=== PATIENT | male | born 1945 | race Caucasian/White ===

== ENCOUNTER 2017-11-02 08:05 | Emergency (ER) | payer MEDICARE ==
[~2017-11-02] VITALS: Ht 177.8 cm; Wt 136.1 kg
[~2017-11-02 08:05] MED LIST: ACULAR1 DROP OD; ADVIL200 M1 PO; ALLOPURINOL100 MG PO; ASPIR-LOW81 MG PO; ATENOLOL25 MG PO; CIPRO500 MG PO; KETOTIFEN FUMARA5 ML OD; LISINOPRIL5 MG PO; METFORMIN HCL1000 MG PO
[2017-11-02] MEDS ORDERED: VENTOLIN HFA18 GM (08:19)
[2017-11-02] MEDS ORDERED: BENAZEPRIL HCL5 MG PO (08:19)
[2017-11-02] MEDS ORDERED: TESSALON PERLE100 MG PO (08:20)
[2017-11-02] MEDS ORDERED: ZITHROMAX250 MG PO (08:20)
== END 2017-11-02 08:39 | disposition home or self-care (01) ==
LOC: ED 08:05
DX: J40 Bronchitis, not specified as acute or chronic (principal); I10 Essential (primary) hypertension; E11.9 Type 2 diabetes mellitus without complications; Z88.2 Allergy status to sulfonamides; Z79.899 Other long term (current) drug therapy; Z79.84 Long term (current) use of oral hypoglycemic drugs
CPT/HCPCS: 99283

== ENCOUNTER 2017-11-03 05:54 | Emergency (ER) | payer MEDICARE ==
[~2017-11-03] VITALS: Ht 177.8 cm; Wt 136.1 kg
[~2017-11-03 05:54] MED LIST changes: +BENAZEPRIL HCL5 MG PO; +TESSALON PERLE100 MG PO; +VENTOLIN HFA18 GM; +ZITHROMAX250 MG PO
== END 2017-11-03 08:08 | disposition home or self-care (01) ==
LOC: ED 05:54
DX: J40 Bronchitis, not specified as acute or chronic (principal); E11.9 Type 2 diabetes mellitus without complications; I10 Essential (primary) hypertension; Z88.2 Allergy status to sulfonamides; Z98.890 Other specified postprocedural states; Z79.899 Other long term (current) drug therapy; Z79.84 Long term (current) use of oral hypoglycemic drugs
CPT/HCPCS: 71020; 81001; 99283

== ENCOUNTER 2019-01-03 11:20 | Emergency (ER) | payer MEDICARE ==
[~2019-01-03] VITALS: Ht 177.8 cm; Wt 136.1 kg
[2019-01-03] MEDS ORDERED: CIPRO500 MG PO (12:24)
[2019-01-03] MEDS ORDERED: FLOMAX0.4 MG PO (12:24)
== END 2019-01-03 12:47 | disposition home or self-care (01) ==
LOC: ED 11:20
DX: N39.0 Urinary tract infection, site not specified (principal); I10 Essential (primary) hypertension; E11.9 Type 2 diabetes mellitus without complications; Z88.2 Allergy status to sulfonamides; Z79.84 Long term (current) use of oral hypoglycemic drugs; Z79.899 Other long term (current) drug therapy
CPT/HCPCS: 81001; 99283

== ENCOUNTER 2019-04-17 17:56 | Emergency (ER) | payer MEDICARE ==
[~2019-04-17] VITALS: Ht 177.8 cm; Wt 131.5 kg
[~2019-04-17 17:56] MED LIST changes: +FLOMAX0.4 MG PO
[2019-04-17] MEDS ORDERED: NORCO 5-325 TA1 EACH PO (18:16)
== END 2019-04-17 18:59 | disposition home or self-care (01) ==
LOC: ED 17:56
DX: M23.92 Unspecified internal derangement of left knee (principal); I10 Essential (primary) hypertension; E11.9 Type 2 diabetes mellitus without complications; Z88.2 Allergy status to sulfonamides; Z79.899 Other long term (current) drug therapy; Z79.84 Long term (current) use of oral hypoglycemic drugs
CPT/HCPCS: 73560; 99283

== ENCOUNTER 2021-01-01 13:58 | Emergency (ER) | payer MEDICARE ==
[~2021-01-01] VITALS: Ht 177.8 cm; Wt 122.5 kg
[~2021-01-01 13:58] MED LIST changes: +ADVIL200 MG PO; +NORCO 5-325 TA1 EACH PO; +ULTRAM50 MG PO
[2021-01-01] MEDS ORDERED: DOXYCYCLINE HY100 MG PO (15:51)
[2021-01-01] MEDS ORDERED: VENTOLIN HFA18 GM INH ×2 (15:51→15:52)
[2021-01-01] MEDS ORDERED: FLONASE ALLERG9.9 ML NAS (15:54)
== END 2021-01-01 16:15 | disposition home or self-care (01) ==
LOC: ED 13:58
DX: J32.9 Chronic sinusitis, unspecified (principal); J06.9 Acute upper respiratory infection, unspecified; I10 Essential (primary) hypertension; E11.9 Type 2 diabetes mellitus without complications; Z20.822 Contact with and (suspected) exposure to COVID-19; Z88.2 Allergy status to sulfonamides; Z79.84 Long term (current) use of oral hypoglycemic drugs; Z79.899 Other long term (current) drug therapy
CPT/HCPCS: 71045; 99284-25; C9803; U0003

== ENCOUNTER 2021-12-29 07:53 | Emergency (ER) | payer MEDICARE ==
[~2021-12-29] VITALS: Ht 177.8 cm; Wt 122.5 kg
[~2021-12-29 07:53] MED LIST changes: +DOXYCYCLINE HY100 MG PO; +FLONASE ALLERG9.9 ML NAS; +VENTOLIN HFA18 GM INH
--- NOTE | 2021-12-31 17:50 | EKG ---
[facility] [address] [facility] [place] [address] Signed Normal sinus rhythm Left anterior fascicular block Minimal voltage criteria for LVH, may be normal variant ( R in aVL ) Septal infarct , age undetermined Abnormal ECG No previous ECGs available Confirmed by GRANT HARRELL MD ([id number]) on 12/31/2021 5:50:10 PM Electronically Signed By: GRANT HARRELL MD 12/31/21 1750 PATIENT NAME: SHOBHAFRANCOIS SY Electrocardiogram DATE OF : 41 PHYSICIAN: GRANT HARRELL MD REPORT #: [id number] REPORT IS CONFIDENTIAL AND NOT TO BE RELEASED WITHOUT AUTHORIZATION
== END 2021-12-29 09:55 | disposition home or self-care (01) ==
LOC: ED 07:53
DX: J20.5 Acute bronchitis due to respiratory syncytial virus (principal); I10 Essential (primary) hypertension; E11.9 Type 2 diabetes mellitus without complications; M10.9 Gout, unspecified; Z88.2 Allergy status to sulfonamides; Z79.84 Long term (current) use of oral hypoglycemic drugs; Z79.899 Other long term (current) drug therapy; Z20.822 Contact with and (suspected) exposure to COVID-19
CPT/HCPCS: 71045; 80048; 84484; 85025; 93005; 93010; 99284-25; C9803; U0003

== ENCOUNTER 2022-03-22 15:24 | Emergency (ER) | payer MEDICARE ==
[~2022-03-22] VITALS: Ht 177.8 cm; Wt 122.5 kg
== END 2022-03-22 18:16 | disposition home or self-care (01) ==
LOC: ED 15:24
DX: K80.20 Calculus of gallbladder without cholecystitis without obstruction (principal); N32.89 Other specified disorders of bladder; K59.00 Constipation, unspecified; I10 Essential (primary) hypertension; E11.9 Type 2 diabetes mellitus without complications; M10.9 Gout, unspecified; Z88.2 Allergy status to sulfonamides; Z79.899 Other long term (current) drug therapy; Z79.84 Long term (current) use of oral hypoglycemic drugs
CPT/HCPCS: 36415; 74177; 80053; 85025; 99284-25; Q9967

== ENCOUNTER 2022-07-19 13:47 | Emergency (ER) | payer OTHER, MEDICARE ==
[~2022-07-19] VITALS: Ht 177.8 cm; Wt 118.8 kg
[2022-07-19] MEDS ORDERED: FAMCICLOVIR500 MG PO (14:14)
== END 2022-07-19 16:10 | disposition home or self-care (01) ==
LOC: ED 13:47
DX: S20.211A Contusion of right front wall of thorax, initial encounter (principal); S40.011A Contusion of right shoulder, initial encounter; I10 Essential (primary) hypertension; E11.9 Type 2 diabetes mellitus without complications; W22.8XXA Striking against or struck by other objects, initial encounter; Z79.899 Other long term (current) drug therapy
CPT/HCPCS: 71101; 73030; 99283-25

== ENCOUNTER 2022-08-30 12:48 | Emergency (ER) | payer MEDICARE, OTHER ==
[~2022-08-30] VITALS: Ht 177.8 cm; Wt 118.8 kg
[~2022-08-30 12:48] MED LIST changes: +FAMCICLOVIR500 MG PO
[2022-08-30] MEDS ORDERED: ASPIRIN81 MG PO (13:14)
[2022-08-30] MEDS ORDERED: CIPRO500 MG PO ×2 (13:15→14:29)
== END 2022-08-30 15:08 | disposition home or self-care (01) ==
LOC: ED 12:48
DX: N39.0 Urinary tract infection, site not specified (principal); I10 Essential (primary) hypertension; E11.9 Type 2 diabetes mellitus without complications; M10.9 Gout, unspecified; Z88.2 Allergy status to sulfonamides; Z79.899 Other long term (current) drug therapy; Z79.84 Long term (current) use of oral hypoglycemic drugs; Z79.82 Long term (current) use of aspirin
CPT/HCPCS: 81001; 87088; 99283

== ENCOUNTER 2022-09-02 16:45 | Emergency (ER) | payer MEDICARE, OTHER ==
[~2022-09-02] VITALS: Ht 177.8 cm; Wt 118.8 kg
[~2022-09-02 16:45] MED LIST changes: +ASPIRIN81 MG PO
--- OUTSIDE RECORDS SUMMARY | 2022-09-02 16:50 | XMS ---
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 EMatias VISIT COUNT (12 MO.) [address] [place] [address] TOTAL 5 NOTE: Visits indicate total known visits. ED/UCC VISIT TRACKING (12 MO.) 09/02/2022 16:45 [facility] [place] TYPE: Emergency COMPLAINT: - URINE PROBLEM 08/30/2022 12:49 [facility] TYPE: Emergency COMPLAINT: - URINATING BLOOD 07/19/2022 13:47 [facility] [place] TYPE: Emergency COMPLAINT: - FALL,BACK MARILEE DIAGNOSES: - Essential (primary) hypertension - Striking against or struck by other objects, initial encounter - Other skilled nursing (current) drug therapy - Pain in right shoulder - Type 2 diabetes mellitus without complications - Contusion of right front wall of thorax, initial encounter - Contusion of right shoulder, initial encounter 03/22/2022 15:24 [facility] TYPE: Emergency COMPLAINT: - ABDOMINAL PAIN DIAGNOSES: - Other specified disorders of bladder - Type 2 diabetes mellitus without complications - Gout, unspecified - Constipation, unspecified - Unspecified abdominal pain - Calculus of gallbladder without cholecystitis without obstruction - Essential (primary) hypertension - long term care pharmacist (current) use of oral hypoglycemic drugs - Other skilled nursing (current) drug therapy - Allergy status to sulfonamides 12/29/2021 07:55 [facility] TYPE: Emergency COMPLAINT: - COUGH, TIGHT CHEST, EUPHORIA, HEADACHE DIAGNOSES: - Shortness of breath - Essential (primary) hypertension - Allergy status to sulfonamides - Gout, unspecified - Other skilled nursing (current) drug therapy - Contact with and (suspected) exposure to COVID-19 - Acute bronchitis due to respiratory syncytial virus - [facility] (current) use of oral hypoglycemic drugs - Type 2 diabetes mellitus without complications INPATIENT VISIT TRACKING (12 MO.) No inpatient visits to display in this time frame [id number]
[2022-09-02] MEDS ORDERED: FLOMAX0.4 MG PO (18:55)
== END 2022-09-02 19:00 | disposition home or self-care (01) ==
LOC: ED 16:45
DX: N39.0 Urinary tract infection, site not specified (principal); I10 Essential (primary) hypertension; E11.9 Type 2 diabetes mellitus without complications; M10.9 Gout, unspecified; Z88.2 Allergy status to sulfonamides; Z79.899 Other long term (current) drug therapy; Z79.84 Long term (current) use of oral hypoglycemic drugs; Z79.82 Long term (current) use of aspirin
CPT/HCPCS: 51702; 81001; 87088; 99283-25

== ENCOUNTER 2023-02-16 12:34 | Emergency (ER) | payer MEDICARE, OTHER ==
[~2023-02-16] VITALS: Ht 175.3 cm; Wt 117.5 kg
[~2023-02-16 12:34] MED LIST changes: +ELIQUIS5 MG PO; +TAMSULOSIN HCL0.4 MG PO
--- OUTSIDE RECORDS SUMMARY | 2023-02-16 12:36 | XMS ---
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 E.Nichole VISIT COUNT (12 MO.) 2 [facility] [address] TOTAL 9 NOTE: Visits indicate total known visits. ED/UCC VISIT TRACKING (12 MO.) 02/16/2023 12:34 [facility] TYPE: Emergency COMPLAINT: - BLOOD IN URINE 01/21/2023 16:[address] [facility] [place] TYPE: Emergency COMPLAINT: - FOOT PAIN 12/26/2022 19:00 [facility] TYPE: Emergency DIAGNOSES: - Feeling of incomplete bladder emptying - Urinary tract infection, site not specified - diff urinating - Hematuria, unspecified - Urinary Complaint - Benign prostatic hyperplasia with lower urinary tract symptoms 12/12/2022 13:57 [facility] TYPE: Emergency COMPLAINT: - POSS BLOODCLOTS IN LUNGS DIAGNOSES: - Acute embolism and thrombosis of right tibial vein - Contact with and (suspected) exposure to COVID-19 - Other group home (current) drug therapy - Essential (primary) hypertension - Type 2 diabetes mellitus without complications - Allergy status to sulfonamides - Acute embolism and thrombosis of right popliteal vein - Gout, unspecified - Acute embolism and thrombosis of right peroneal vein - longterm (current) use of oral hypoglycemic drugs - Shortness of breath - Acute embolism and thrombosis of right femoral vein [facility]14[facility]22 [facility] DIAGNOSES: - urinating blood - Hematuria - urinationg blood - Gross hematuria 09/02/2022 16:45 [facility] TYPE: Emergency COMPLAINT: - URINE PROBLEM DIAGNOSES: - Other group home (current) drug therapy - Allergy status to sulfonamides - Gout, unspecified - Type 2 diabetes mellitus without complications - Essential (primary) hypertension - Retention of urine, unspecified - longterm (current) use of aspirin - 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 - Urinary tract infection, site not specified 08/30/2022 12:49 [facility] TYPE: Emergency COMPLAINT: - URINATING BLOOD DIAGNOSES: - longterm (current) use of aspirin - Other termite control technician (current) drug therapy - Type 2 diabetes mellitus without complications - 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 - Dysuria - Allergy status to sulfonamides - Gout, unspecified - Essential (primary) hypertension - Urinary tract infection, site not specified 07/19/2022 13:47 [facility] TYPE: Emergency COMPLAINT: - FALL,BACK MARILEE DIAGNOSES: - Contusion of right shoulder, initial encounter - Essential (primary) hypertension - Striking against or struck by other objects, initial encounter - Other termite control technician (current) drug therapy - Pain in right shoulder - Type 2 diabetes mellitus without complications - Contusion of right front wall of thorax, initial encounter 03/22/2022 15:[address] 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
[2023-02-16] MEDS ORDERED: FUROSEMIDE20 MG PO (12:56)
[2023-02-16] MEDS ORDERED: PHENAZOPYRIDIN200 MG PO (12:56)
[2023-02-16] MEDS ORDERED: MACROBID 100 M100 MG PO (14:23)
== END 2023-02-16 14:31 | disposition home or self-care (01) ==
LOC: ED 12:34
DX: N39.0 Urinary tract infection, site not specified (principal); D68.32 Hemorrhagic disorder due to extrinsic circulating anticoagulants; T45.515A Adverse effect of anticoagulants, initial encounter; I10 Essential (primary) hypertension; E11.9 Type 2 diabetes mellitus without complications; M10.9 Gout, unspecified; Z88.2 Allergy status to sulfonamides; Z79.01 Long term (current) use of anticoagulants; Z79.899 Other long term (current) drug therapy; Z79.84 Long term (current) use of oral hypoglycemic drugs
CPT/HCPCS: 51702; 51798; 81001; 87088; 99283-25